=== PATIENT | male | born 1955 | race Caucasian/White ===

== ENCOUNTER 2018-09-26 16:15 | Inpatient (IN) ==
[2018-09-26] MEDS ORDERED: Naloxone 0.4 MG/ML INJ IVP PRN (18:26)
[2018-09-26 18:54] LABS: Basophils % 0.2 %; Eosinophils % 0.2 %; Hematocrit 17.4 % (37.5-50.1); Lymphocytes # 0.7 K/mcL (0.6-4.6); Lymphocytes % 10.9 %; Mean Corpuscular HGB Conc 32.2 g/dL (31.6-35.5); Mean Corpuscular Hemoglobin 25.2 pg (28.0-33.3); Mean Corpuscular Volume 78.4 fL (83.0-100.0); Mean Platelet Volume 9.9 fL (9.4-12.4); Monocytes # 0.5 K/mcL (0.0-1.3); Monocytes % 8.3 %; Nucleated Red Blood Cells 0.5 /100 WBC (0); Platelet Count 247 K/mcL (140-400); Red Blood Count 2.22 M/mcL (4.19-5.50); Red Cell Distribution Width 15.5 % (11.5-14.5); Segmented Neutrophils % 79.4 %
[2018-09-26 18:56] LABS: Hemoglobin 5.6 g/dL (12.9-16.9); Neutrophils # 4.8 K/mcL (1.6-8.9)
[2018-09-26 19:23] LABS: Platelet Estimate Normal (Normal)
[2018-09-26] MEDS: Pantoprazole 40 MG in 0.9 % Sodium Chloride Mini Bag 100 ML IVC SCH (19:54)
[2018-09-26] MEDS ORDERED: 0.9 % Sodium Chloride 250 ML ONE (21:41)
[2018-09-26] MEDS ORDERED: D5% in Water 1,000 ML IVC PRN (22:29)
[2018-09-26] MEDS ORDERED: *HR* Dextrose 50 % in Water (Syg) 50 ML SYRINGE IVP PRN (22:29)
[2018-09-26] MEDS ORDERED: Dextrose Gel 15 GM/37.5 ML TUBE PO PRN ×2 (22:29)
--- NOTE | 2018-09-26 23:28 | Internal Med History&Physical ---
Date of Encounter: 09/26/18 Time of Encounter: 20:50 Internal Medicine - H&P: HPI Chief complaint: Acute blood loss anemia Admitted From: Hospital to Hospital Transfer Plans for Post Hospital Care: Home History of present illness: Mr. Carlton is a 63 year old male Patient presented to the emergency room at [facility] with a 1 week history of weakness and shortness of breath. The shortness of breath worsened within the last 2 days. He has noticed dark red blood in his stool for the last week as well. He has had similar symptoms in the past and was treated at [facility] about 3 years ago. He received an upper and lower scope but did not find a source of bleeding. He was started on iron tablets at that time because he was found to be iron deficient. He is never required a blood transfusion in the past. The emergency room at [facility] patient's hemoglobin was 7.2. BMP showed a sodium of 128 but an elevated glucose of 417 demonstrates a corrected sodium of 133. Patient's lactic acid level was also elevated at 2.9. Occult blood test was also positive. Chest x-ray showed no acute abnormalities but a CT abdomen and pelvis revealed a right lower lobe pneumonia, but no acute findings in the abdomen or pelvis. He was started on IV Protonix given 2 L of IV fluids blood cultures were drawn and he was started on Levaquin. Because [facility] has no GI coverage and their blood bank could not match his blood type patient was transferred to [place] for further management. Upon my assessment patient appears comfortable in no acute distress. He denies chest pain, nausea, vomiting, abdominal pain, diarrhea and constipation. His indicates that he did also have a fever 4 days ago of 102.5. He took Tylenol but with his history this causes GI bleeding. He tries to limit taking Tylenol because of this. Repeat labs upon arrival showed a hemoglobin of 5.6. Patient was again typed and screened and 5 units of PRBCs were ordered as well as 2 units of plasma and 1 unit of platelets. Past Med Surg Social Fam HX - Past Medical History Medical history: diabetes Additional medical history: anemia, vertigo - Social History Smoking Status: Never smoker Smokeless Tobacco Status: No Alcohol use: rarely Drug use: none Internal Medicine - H&P: Meds Allergy/AdvReac Type Severity Reaction Status Date / Time No Known Allergies Allergy Verified 09/26/18 18:36 All Systems PM: A 10-system review of systems was performed and is negative for pertinent findings except as documented above in the HPI. - Constitutional Vitals: Temp Pulse Resp BP Pulse Ox 99.7 F H 94 16 154/81 97 09/26/18 21:46 09/26/18 21:46 09/26/18 21:43 09/26/18 21:46 09/26/18 21:46 General appearance: Present: A&O X 3, pleasant, no acute distress, answers q uestions appropriately Exam: Patient stable - Head Head exam: Present: normal inspection - Eye Eye exam: Present: EOMI, normal appearance. Absent: conjuntiva pink Additional comments: Pale conjunctiva - Neck Neck exam general surgery: Absent: tenderness - Respiratory Respiratory exam: Present: CTAB. Absent: rales, respiratory distress, rhonchi, wheezes - Cardiovascular Cardiovascular exam: Present: RRR. Absent: diastolic murmur, systolic murmur - GI/Abdominal GI/Abdominal exam: Present: normal bowel sounds, soft. Absent: tenderness - Extremities Exam Extremities exam: Present: warm, radial pulses palpable and symmetrical. Absent: calf tenderness, pedal edema, tenderness - Neurological Exam Neurological exam: Present: no focal deficits, strengths equal and symetr throughout. Absent: motor sensory deficit, facial droop, speech deficit - Skin Skin exam: Present: dry, normal color, warm Internal Med - H&P Results - Labs CBC & Chem 7: 09/26/18 18:39 Labs: Short CBC 09/26/18 Range/Units 18:39 WBC 6.1 (4.3-11.1) K/mcL Hgb 5.6 L* (12.9-16.9) g/dL Hct 17.4 L (37.5-50.1) % Plt Count 247 (140-400) K/mcL Neutrophils # 4.8 (1.6-8.9) K/mcL - Assessment and plan (1) Acute blood loss anemia Current Visit: Yes Status: Acute Assessment and plan: Hemoglobin of 7.2 at [facility], now 5.6. Delay getting blood due to antibody screening, but now blood transfusion initiated, giving 5 units pRBCs as well as 1 unit of platelets, and 2 units of plasma. GI consulted, will see patient in the morning. Continue blood, plasma and platelet transfusion Recheck cbc after 2-3 units transfused Monitor for signs of bleeding GI consult in AM, likely scope in near future. (2) GI bleed Current Visit: Yes Status: Acute Assessment and plan: Positive stool occult blood, history of GI bleed. No sources found in the past however. Treatment as above. Qualifiers: Qualified Code(s): K92.2 - Gastrointestinal hemorrhage, unspecified (3) Right lower lobe pneumonia Current Visit: Yes Status: Acute Assessment and plan: As evidenced by patient's CT abdomen. Levaquin started in ER at [facility], blood cultures drawn. Continue antibiotics follow up blood cultures Repeat lactic acid level. Qualifiers: Pneumonia type: due to unspecified organism Qualified Code(s): J18.1 - Lobar pneumonia, unspecified organism (4) Shortness of breath Current Visit: Yes Status: Acute Assessment and plan: Likely secondary to anemia as well as pneumonia. Treatment as above Osygen as needed (5) Diabetes Current Visit: Yes Status: Acute Assessment and plan: Blood sugar elevated at 417. Not on insulin at home Hold home meds Low dose sliding scale insulin as needed Monitor sugars Q6H Diabetic diet when no longer NPO Qualifiers: Diabetes mellitus type: type 2 Diabetes mellitus long distance operator insulin use: without long distance operator use Diabetes mellitus complication status: with hyperglycemia Qualified Code(s): E11.65 - Type 2 diabetes mellitus with hyperglycemia (6) History of iron deficiency anemia Current Visit: Yes Status: Acute Assessment and plan: Patient on iron at home. MCV low at 78.4. Treatment as above Continue iron at discharge (7) DVT prophylaxis Current Visit: Yes Status: Acute Assessment and plan: SCDs - Time Spent With Patient Total time spent is greater than 50% in coordination of care (as documented) at patient's floor/unit and/or counseling patient: Greater than 35 minutes
[2018-09-27] MEDS: Pantoprazole 40 MG in 0.9 % Sodium Chloride Mini Bag 100 ML IVC SCH ×3 (00:23→10:15)
[2018-09-27] MEDS: Insulin LISPRO 300 UNITS/3 ML VIAL SQ SCH ×4 (00:24→18:03)
[2018-09-27 00:41] LABS: Basophils % 0.3 %; Eosinophils % 0.3 %; Hematocrit 20.6 % (37.5-50.1); Hemoglobin 6.5 g/dL (12.9-16.9); Lymphocytes # 0.8 K/mcL (0.6-4.6); Lymphocytes % 11.3 %; Mean Corpuscular HGB Conc 31.6 g/dL (31.6-35.5); Mean Corpuscular Volume 82.4 fL (83.0-100.0); Mean Platelet Volume 10.5 fL (9.4-12.4); Monocytes # 0.6 K/mcL (0.0-1.3); Monocytes % 9.1 %; Neutrophils # 5.4 K/mcL (1.6-8.9); Nucleated Red Blood Cells 0.9 /100 WBC (0); Platelet Count 264 K/mcL (140-400); Red Cell Distribution Width 16.4 % (11.5-14.5)
[2018-09-27 00:58] LABS: BUN/Creatinine Ratio 14 (6-26); Blood Urea Nitrogen 11 mg/dL (8-23); Calcium 8.3 mg/dL (8.6-10.3); Carbon Dioxide 22 mEq/L (23-29); Chloride 100 mEq/L (98-107); Glucose 253 mg/dL (70-105); Osmolality,Calculated 282 (280-300); Potassium 3.5 mEq/L (3.5-5.1); Sodium 132 mEq/L (136-145); eGFR For Non-African Americans > 60 (> 60)
[2018-09-27] MEDS ORDERED: 0.9 % Sodium Chloride 250 ML ONE ×2 (02:04→06:50)
[2018-09-27] MEDS: Levofloxacin 750 MG/150 ML 750 MG/150 ML BAG IVPB SCH (07:49)
--- NOTE | 2018-09-27 09:31 | Internal Med Progress Note ---
Hospitalist Progress Note - Encounter Date of Encounter: 09/27/18 Time of Encounter: 09:28 - Subjective Interval History: Seen and examined at the bedside with family Denies CP/SOB/N/V/D Receiving RBCs Awaiting EGD by GI-Dr. Quiñones informed Hemodynamically stable - Exam Vitals: Temp Pulse Resp BP Pulse Ox 98.7 F 85 16 161/90 96 09/27/18 08:25 09/27/18 08:25 09/27/18 08:25 09/27/18 08:25 09/27/18 08:25 Exam: VSS Gen: NAD HEENT: Moist oral mucosa, no oral lesions, not pale, anicteric, acyanotic, normal neck inspection Chest: Equal chest movt bilaterally resp: CTAB Heart: S1, S2 only, no m/g/r Abdomen: Soft, not tender, no palapably enlarged organs Extremities: No edema Neuro: No gross deficits, normal speech and gait Psych: Appropriate affect - Assessment and Plan (1) Acute blood loss anemia Current Visit: Yes Status: Acute Assessment and Plan: likely due to GIB s/p 5 RBCs, 2 FFPs, 1 PLT Patient reports prior hx of GIB, likely due to duodenal ulcers, denied recent use of NSAIDS Reports recent colonoscopy said to be negative for bleeding and hx of polyps Hb at presentation 5, improved to 6 at [facility] Rpt CBC now GI called-Dr. Nguyen /Ishmael to see, for EGD today Keep NPO till GI eval Continue to monitor He is hemodynamically stable (2) DVT prophylaxis Current Visit: Yes Status: Acute Assessment and Plan: SCDs, due to GIB (3) Diabetes Current Visit: Yes Status: Chronic Assessment and Plan: Continue SSI FS q6h for now Check A1C a.m (4) GI bleed Current Visit: Yes Status: Acute Assessment and Plan: Positive stool occult blood, history of GI bleed. No sources found in the past however. Treatment as in anemia (5) History of iron deficiency anemia Current Visit: Yes Status: Acute Assessment and Plan: consider resuming iron prior to discharge Microcytic anemia on presentation (6) Right lower lobe pneumonia Current Visit: Yes Status: Acute Assessment and Plan: continue levaquin DVT Prophylaxis: SCDs - Time Spent with Patient Total time spent is greater than 50% in coordination of care (as documented) at patient's floor/unit and/or counseling patient: Plan of Care Discussed with: patient Internal Medicine: Result - Labs CBC & Chem 7: 09/27/18 00:09 09/27/18 00:09 Labs: Short CBC 09/26/18 09/27/18 Range/Units 18:39 00:09 WBC 6.1 6.9 (4.3-11.1) K/mcL Hgb 5.6 L* 6.5 L (12.9-16.9) g/dL Hct 17.4 L 20.6 L (37.5-50.1) % Plt Count 247 264 (140-400) K/mcL Neutrophils # 4.8 5.4 (1.6-8.9) K/mcL BMP 09/27/18 00:09 Sodium 132 L Potassium 3.5 Chloride 100 Carbon Dioxide 22 L BUN 11 Creatinine 0.76 Glucose 253 H Calcium 8.3 L Consult Discharge Plan - Plan Referrals: David Vasquez DO [Primary Care Provider] - 10/07/18 11:00 am (3) Diabetes Qualifiers: Diabetes mellitus type: type 2 Diabetes mellitus radio script writer insulin use: without radio script writer use Diabetes mellitus complication status: with hyperglycemia Qualified Code(s): E11.65 - Type 2 diabetes mellitus with hyperglycemia (4) GI bleed Qualifiers: Qualified Code(s): K92.2 - Gastrointestinal hemorrhage, unspecified (6) Right lower lobe pneumonia Qualifiers: Pneumonia type: due to unspecified organism Qualified Code(s): J18.1 - Lobar pneumonia, unspecified organism
--- NOTE | 2018-09-27 11:50 | Anesthesia Evaluation PreOp ---
Date of Encounter: 09/27/18 Time of Encounter: 13:22 - Past History Planned Operation: EGD Cardiac History: Hyperlipidemia Pulmonary History: Other (right lower lobe pneumonia) FIBER TECHNICIAN History: Denies Any Significant HX Other Medical History: Diabetes Type II, GERD, Other (GI bleed) Anesthesia History: Past Anesthesia (no prior GA) Alcohol Use: rarely Drug use: none Medications and Allergies Allergy/AdvReac Type Severity Reaction Status Date / Time No Known Allergies Allergy Verified 09/26/18 18:36 - Meds/Allergy Pre-op Review Medications Reviewed: Yes Allergies Reviewed: Yes Beta Blockers on Current Med List: No Anesthesia Results - Labs 09/27/18 12:57 09/27/18 00:09 Anesthesia Exam Vital Signs/O2 Sat/Glucose, Most Recent Temp Pulse Resp BP Pulse Ox 99.2 F 81 18 158/90 98 09/27/18 11:32 09/27/18 11:32 09/27/18 11:32 09/27/18 11:32 09/27/18 11:32 Blood Glucose* 225 Height: 6'1''/1.85m Weight: 197 lbs/89.5 kg NPO (# of Hours): 8 Pain Scale: 0 Pain Scale Used: Numeric (1 - 10) - HEENT Pupil (Motor): EOMI Mallampati: II Teeth: Normal Oral Opening: Greater than 3 - FIBER TECHNICIAN LOC: Oriented FIBER TECHNICIAN Motor: Normal RUE, Normal LUE, Normal RLE, Normal LLE, Normal Face FIBER TECHNICIAN Sensory: Normal: RUE, LUE, RLE, LLE, Face - Cardiac Rhythm: Regular Murmur: None - Pulmonary Breath Sounds: bilateral Clear Respiratory Effort: Symmetrical Anesthesia Assess/Plan ASA Score: 3 Level of consciousness: Cooperative, Oriented, Tranquil Anesthetic Plan: MAC Monitoring Plan: Standard Monitors
--- NOTE | 2018-09-27 12:39 | Gastroenterology Consult Note ---
Date of Encounter: 09/27/18 Time of Encounter: 02:45 - Assessment and plan (1) Melena Current Visit: Yes Status: Acute Assessment and plan: History of melena for 1 week without known risk factors Patient presents with hemoglobin 5.6, symptomatic He did undergo EGD today without evidence of source for bleed Plan Transitioned to Protonix once a day IV push We will give clear diet today GoLYTELY plus Dulcolax GI prep Plan for push enteroscopy tomorrow plus colonoscopy Repeat H&H at 6 PM (2) Acute blood loss anemia Current Visit: Yes Status: Acute Assessment and plan: EGD does not show evidence of acute bleed Plan as above (3) History of iron deficiency anemia Current Visit: Yes Status: Acute - Time Spent With Patient Total time spent is greater than 50% in coordination of care (as documented) at patient's floor/unit and/or counseling patient: GI History of Present Illness - Data of Consult Patient: new to practice Consult date: 09/27/18 Requesting Physician: Janak Brown MD - Consult Narrative Reason for consult: GI bleed History of present illness: Mr. Carlton is a 63 year old male with history of diabetes mellitus who presented to the ED with 1 week history of melena and some shortness of breath and weakness. The patient says that he has had a history of melana in the past approximately 4 years ago at either [facility] or [facility] at which time he had an EGD and colonoscopy which were essentially normal. At that time he was apparently taking large amounts of NSAIDs, however he is not during this occasion. He says that this started about one week ago and he cannot think of anything that brought it on. Initially he was not concerned about it, however he started to develop significant shortness of breath and so he felt that maybe he should be checked out. Upon arrival to the ED it was noted that his hemoglobin was 5.6. The patient did receive 5 u packed red blood cells, 2 units plasma, one unit platelets. The patient was started on IV Protonix and scheduled for EGD today. Past Med Surg Social Fam HX - Past Medical History Medical history: diabetes Additional medical history: anemia, vertigo - Social History Smoking Status: Never smoker Smokeless Tobacco Status: No Alcohol use: rarely Drug use: none Review of Systems: Constitutional: Denies fevers, chills, weight loss. Admits to generalized fatigue Head/Neck: Denies HARTMANN, neck stiffness EENT: Denies vision changes/blurriness, rhinorrhea, congestion, sore throat CVS: Denies chest pain, palpitations, ALVA, orthopnea, edema, PND Pulm: Denies SOB, cough, sputum, hemoptysis, wheezing GI: Denies abdominal pain, nausea, vomiting, diarrhea, constipation, hematemasis. Admits to melena : Denies dysuria, increased frequency, urgency, hematuria Heme: Denies ease of bleeding or bruising MSK: Denies joint pain, limited ROM Skin: Denies rashes, ulcers, color changes Neuro: Denies HARTMANN, paresthesias, focal deficits, ataxia - Constitutional Vitals: Temp Pulse Resp BP Pulse Ox 99.2 F 81 18 158/90 98 09/27/18 11:32 09/27/18 11:32 09/27/18 11:32 09/27/18 11:32 09/27/18 11:32 Exam: Gen: Vitals noted. No acute distress. Eyes: anicteric sclerae, moist conjunctivae; no lid-lag; Pupils equal and reactive to light HENT: Atraumatic; oropharynx clear with moist mucous membranes and no mucosal ulcerations; normal hard and soft palate Neck: Trachea midline; supple, no thyromegaly or lymphadenopathy Cardiac: RRR, no murmur, +S1/S2 Pulmonary: CTA bilaterally, no wheezes, rales or rhonchi, equal chest expansion Abdomen: soft, nontender, no guarding. No masses or hepatosplenomegaly MSK: ROM intact, no joint swelling noted Extremities: no BLE edema, nontender calf, no cyanosis or clubbing Skin: Normal temperature, turgor and texture; no rash, ulcers or subcutaneous nodules Neuro: moves all extremities, no focal deficits. Psych: Appropriate mood and behavior. A&Ox3 Results - Labs CBC & Chem 7: 09/27/18 12:57 09/27/18 00:09 Labs: Last Result Calcium 8.3 mg/dL (8.6-10.3) L 09/27/18 00:09 Entire Visit Hgb 6.5 g/dL (12.9-16.9) L 09/27/18 00:09 Hct 20.6 % (37.5-50.1) L 09/27/18 00:09 Consult Discharge Plan - Plan Referrals: David Vasquez DO [Primary Care Provider] - 10/07/18 11:00 am
[2018-09-27 13:14] LABS: Basophils % 0.3 %; Eosinophils % 0.4 %; Hematocrit 31.8 % (37.5-50.1); Hemoglobin 10.4 g/dL (12.9-16.9); Immature Granulocytes % 1.5 % (0-4); Lymphocytes # 0.8 K/mcL (0.6-4.6); Lymphocytes % 10.1 %; Mean Corpuscular HGB Conc 32.7 g/dL (31.6-35.5); Mean Corpuscular Hemoglobin 27.3 pg (28.0-33.3); Mean Corpuscular Volume 83.5 fL (83.0-100.0); Mean Platelet Volume 9.9 fL (9.4-12.4); Monocytes # 0.7 K/mcL (0.0-1.3); Monocytes % 9.9 %; Neutrophils # 5.8 K/mcL (1.6-8.9); Nucleated Red Blood Cells 0.9 /100 WBC (0); Platelet Count 251 K/mcL (140-400); Red Blood Count 3.81 M/mcL (4.19-5.50); Red Cell Distribution Width 15.6 % (11.5-14.5); Segmented Neutrophils % 77.8 %
[2018-09-27] MEDS ORDERED: *HR* Propofol 200 MG/20 ML VIAL IVP ONE (13:36)
[2018-09-27] MEDS ORDERED: Lidocaine -MPF 2% 2 ML VIAL ONE (13:36)
[2018-09-27] MEDS ORDERED: SODIUM CHLORIDE/NAHCO3/KCL/PEG 4,000 ML SOLN.RECON PO ONE ×2 (15:41→17:00)
[2018-09-27 22:17] LABS: Basophils % 0.4 %; Eosinophils % 0.3 %; Hematocrit 30.2 % (37.5-50.1); Hemoglobin 10.2 g/dL (12.9-16.9); Immature Granulocytes % 1.9 % (0-4); Lymphocytes # 0.7 K/mcL (0.6-4.6); Lymphocytes % 9.6 %; Mean Corpuscular HGB Conc 33.8 g/dL (31.6-35.5); Mean Corpuscular Hemoglobin 27.6 pg (28.0-33.3); Mean Corpuscular Volume 81.6 fL (83.0-100.0); Mean Platelet Volume 10.2 fL (9.4-12.4); Monocytes # 0.5 K/mcL (0.0-1.3); Monocytes % 6.9 %; Neutrophils # 6.3 K/mcL (1.6-8.9); Nucleated Red Blood Cells 0.6 /100 WBC (0); Platelet Count 283 K/mcL (140-400); Red Cell Distribution Width 15.9 % (11.5-14.5); Segmented Neutrophils % 80.9 %
[2018-09-28] MEDS: Insulin LISPRO 300 UNITS/3 ML VIAL SQ SCH ×3 (00:13→17:09)
[2018-09-28 04:54] LABS: Basophils % 0.3 %; Eosinophils % 0.6 %; Immature Granulocytes % 2.2 % (0-4); Lymphocytes # 0.7 K/mcL (0.6-4.6); Lymphocytes % 11.3 %; Mean Corpuscular HGB Conc 33.3 g/dL (31.6-35.5); Mean Corpuscular Hemoglobin 27.4 pg (28.0-33.3); Mean Corpuscular Volume 82.2 fL (83.0-100.0); Mean Platelet Volume 10.2 fL (9.4-12.4); Monocytes # 0.5 K/mcL (0.0-1.3); Monocytes % 8.5 %; Neutrophils # 4.9 K/mcL (1.6-8.9); Nucleated Red Blood Cells 0.6 /100 WBC (0); Platelet Count 272 K/mcL (140-400); Red Blood Count 3.65 M/mcL (4.19-5.50); Red Cell Distribution Width 15.7 % (11.5-14.5); Segmented Neutrophils % 77.1 %
[2018-09-28 05:01] LABS: BUN/Creatinine Ratio 9 (6-26); Blood Urea Nitrogen 7 mg/dL (8-23); Calcium 8.5 mg/dL (8.6-10.3); Carbon Dioxide 20 mEq/L (23-29); Chloride 102 mEq/L (98-107); Glucose 216 mg/dL (70-105); Osmolality,Calculated 281 (280-300); Potassium 3.1 mEq/L (3.5-5.1); Sodium 133 mEq/L (136-145); eGFR For Non-African Americans > 60 (> 60)
[2018-09-28] MEDS ORDERED: Potassium Chloride 40 MEQ, Lidocaine 1% 2 ML in D5% in Water 500 ML IVPB ONE (07:27)
[2018-09-28] MEDS: Levofloxacin 750 MG/150 ML 750 MG/150 ML BAG IVPB SCH (07:52)
[2018-09-28] MEDS: Pantoprazole 40 MG VIAL IVP SCH (07:53)
[2018-09-28 07:55] LABS: Estimated Average Glucose 151 mg/dl; Hemoglobin A1C 6.9 %
[2018-09-28] MEDS ORDERED: Insulin LISPRO 300 UNITS/3 ML VIAL SQ SCH ×2 (12:00→21:00)
--- NOTE | 2018-09-28 12:56 | Anesthesia Evaluation PreOp ---
Date of Encounter: 09/28/18 Time of Encounter: 12:54 - Past History Planned Operation: push enteroscopy, colonoscopy (GI bleed) Cardiac History: Hyperlipidemia Pulmonary History: Denies Any Significant HX SECURITIES BROKER History: Denies Any Significant HX Other Medical History: Bleeding (GI bleed - s/p 5U PRBC's & 2 plasma & 1 platelets), Diabetes Type II (oral medications only), GERD (well controlled with prilosec) Anesthesia History: No Prior Anesthetic Complications Alcohol Use: rarely Drug use: none Medications and Allergies Atorvastatin [Lipitor] 40 mg PO HS 09/27/18 [History] Ferrous Sulfate 325 mg PO TID 09/27/18 [History] Gemfibrozil [Lopid] 600 mg PO BIDWM 09/27/18 [History] Glimepiride [Amaryl] 4 mg PO DAILY 09/27/18 [History] Metformin HCl 1,000 mg PO BID 09/27/18 [History] Omeprazole [PriLOSEC] 40 mg PO DAILY 09/27/18 [History] Pioglitazone HCl [Actos] 45 mg PO DAILY 09/27/18 [History] Allergy/AdvReac Type Severity Reaction Status Date / Time No Known Allergies Allergy Verified 09/26/18 18:36 - Meds/Allergy Pre-op Review Medications Reviewed: Yes Allergies Reviewed: Yes Beta Blockers on Current Med List: No Anesthesia Results - Labs 09/28/18 04:07 09/28/18 04:07 Anesthesia Exam Last Vital Signs Temp 98.4 F 09/28/18 11:12 Pulse 75 09/28/18 12:54 Resp 18 09/28/18 12:54 BP 141/78 09/28/18 12:54 Pulse Ox 98 09/28/18 12:54 Weight: 89 kg NPO (# of Hours): > 8 hrs - HEENT Pupil (Motor): Pupils equal, EOMI Mallampati: II Teeth: Normal Oral Opening: Greater than 3 - SECURITIES BROKER LOC: Oriented - Cardiac Rhythm: Regular Murmur: None - Pulmonary Breath Sounds: bilateral Clear Respiratory Effort: Symmetrical Anesthesia Assess/Plan ASA Score: 2 Level of consciousness: Cooperative Anesthetic Plan: MAC Monitoring Plan: Standard Monitors Recovery Plan: PACU
[2018-09-28] MEDS ORDERED: Propofol 500 MG/50 ML INFUS..BTL ONE (12:58)
--- NOTE | 2018-09-28 14:15 | Internal Med Progress Note ---
Hospitalist Progress Note - Encounter Date of Encounter: 09/28/18 Time of Encounter: 12:00 - Subjective Interval History: Hospital course reviewed. Patient was admitted for GI bleed with hemoglobin of 5.6, requiring 5 units of PRBC transfusion as well as FFP and Plt. Denies any further episode of melena, hematochezia, or bright red blood per rectum. Noted EGD finding yesterday which was unremarkable except for gastritis. - Exam Vitals: Temp Pulse Resp BP Pulse Ox 98.4 F 75 18 141/78 98 09/28/18 11:12 09/28/18 12:54 09/28/18 12:54 09/28/18 12:54 09/28/18 12:54 Exam: VS reviewed Gen: NAD resp: CTAB Heart: S1, S2 only, no m/g/r Abdomen: Soft, not tender Extremities: No edema - Assessment and Plan (1) Acute blood loss anemia Current Visit: Yes Status: Acute Assessment and Plan: likely due to GIB s/p 5 RBCs, 2 FFPs, 1 PLT. Hb stable around 10. Last pRBC transfusion yesterday morning EGD 09/27: gastritis plan for colonoscopy and small bowel enteroscopy today (2) GI bleed Current Visit: Yes Status: Acute Assessment and Plan: as above (3) Diabetes Current Visit: Yes Status: Chronic Assessment and Plan: A1c 6.9 Hold off on oral hypoglycemic agents increase to moderate dose sliding scale ADA diet postprocedure (4) Right lower lobe pneumonia Current Visit: Yes Status: Acute Assessment and Plan: continue levaquin D3, aim for 7 day course (5) Hypokalemia Current Visit: Yes Status: Acute Assessment and Plan: Replete intravenously due to patient's nothing by mouth status (6) DVT prophylaxis Current Visit: Yes Status: Acute Assessment and Plan: SCDs, due to GIB - Time Spent with Patient Total time spent is greater than 50% in coordination of care (as documented) at patient's floor/unit and/or counseling patient: Plan of Care Discussed with: patient (also discussed with family members) Internal Medicine: Result - Labs CBC & Chem 7: 09/28/18 04:07 09/28/18 04:07 Labs: Short CBC 09/27/18 09/28/18 Range/Units 21:42 04:07 WBC 7.7 6.4 (4.3-11.1) K/mcL Hgb 10.2 L 10.0 L (12.9-16.9) g/dL Hct 30.2 L 30.0 L (37.5-50.1) % Plt Count 283 272 (140-400) K/mcL Neutrophils # 6.3 4.9 (1.6-8.9) K/mcL BMP 09/28/18 04:07 Sodium 133 L Potassium 3.1 L Chloride 102 Carbon Dioxide 20 L BUN 7 L Creatinine 0.78 Glucose 216 H Calcium 8.5 L Consult Discharge Plan - Plan Referrals: David Vasquez DO [Primary Care Provider] - 10/07/18 11:00 am (2) GI bleed Qualifiers: Qualified Code(s): K92.2 - Gastrointestinal hemorrhage, unspecified (3) Diabetes Qualifiers: Diabetes mellitus type: type 2 Diabetes mellitus intermediate insulin use: without regional intermodal truck driver use Diabetes mellitus complication status: with hyperglycemia Qualified Code(s): E11.65 - Type 2 diabetes mellitus with hyperglycemia (4) Right lower lobe pneumonia Qualifiers: Pneumonia type: due to unspecified organism Qualified Code(s): J18.1 - Lobar pneumonia, unspecified organism
--- NOTE | 2018-09-28 15:11 | Anesthesia Evaluation Post Op ---
Date of Encounter: 09/28/18 Time of Encounter: 13:45 - Vital Signs Vital Signs: Vital Signs Time 1345 BP 111/60 Pulse 68 Resp 20 O2 Sat 98 - Lungs Lungs: Clear Ascult./Percussion - Airway Airway: Non-obstructed - Cardiovascular Regular Rate - Mental Status Mental Status: Alert & Oriented, Answers Appropriately - Nausea Vomiting Nausea Vomiting: Not Present - Hydration Hydration: NPO, Has not voided - Discharge PostOp Status: Transfer Patient to floor
[2018-09-29 07:05] VITALS: BP 143/80
[2018-09-29 07:14] LABS: Hematocrit 33.4 % (37.5-50.1); Hemoglobin 10.9 g/dL (12.9-16.9); Mean Corpuscular HGB Conc 32.6 g/dL (31.6-35.5); Mean Corpuscular Volume 82.7 fL (83.0-100.0); Mean Platelet Volume 9.9 fL (9.4-12.4); Platelet Count 344 K/mcL (140-400); Red Blood Count 4.04 M/mcL (4.19-5.50); Red Cell Distribution Width 15.6 % (11.5-14.5)
[2018-09-29 07:18] LABS: BUN/Creatinine Ratio 8 (6-26); Blood Urea Nitrogen 6 mg/dL (8-23); Calcium 8.6 mg/dL (8.6-10.3); Carbon Dioxide 24 mEq/L (23-29); Chloride 103 mEq/L (98-107); Glucose 257 mg/dL (70-105); Osmolality,Calculated 286 (280-300); Potassium 3.7 mEq/L (3.5-5.1); Sodium 135 mEq/L (136-145); eGFR For Non-African Americans > 60 (> 60)
[2018-09-29] MEDS: Levofloxacin 750 MG/150 ML 750 MG/150 ML BAG IVPB SCH (07:52)
[2018-09-29] MEDS: Pantoprazole 40 MG VIAL IVP SCH (07:52)
[2018-09-29] MEDS: Insulin LISPRO 300 UNITS/3 ML VIAL SQ SCH (07:53)
--- NOTE | 2018-09-29 10:20 | Discharge Summary ---
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 Required 5 units of PRBC transfusion and hemostasis with clips. He remained hemodynamically stable with steady Hb count and will be discharged home with GI follow up in 2 weeks. Date of Encounter: 09/29/18 Time of Encounter: 07:30 - Discharge Diagnosis (1) Acute blood loss anemia Priority: Primary Status: Acute (2) GI bleed Priority: Secondary Status: Acute Qualifiers: Qualified Code(s): K92.2 - Gastrointestinal hemorrhage, unspecified (3) Diabetes Priority: Secondary Status: Chronic Qualifiers: Diabetes mellitus type: type 2 Diabetes mellitus moth exterminator insulin use: without moth exterminator use Diabetes mellitus complication status: with hyperglycemia Qualified Code(s): E11.65 - Type 2 diabetes mellitus with hyperglycemia (4) Right lower lobe pneumonia Priority: Secondary Status: Acute Qualifiers: Pneumonia type: due to unspecified organism Qualified Code(s): J18.1 - Lobar pneumonia, unspecified organism (5) Hypokalemia Priority: Secondary Status: Acute (6) DVT prophylaxis Priority: Secondary Status: Acute Hospital course: Mr. 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 Required 5 units of PRBC transfusion and hemostasis with clips. He remained hemodynamically stable with steady Hb count and will be discharged home with GI follow up in [address] scan showed findings compatible with lower lobe pneumonia and will be completing a total of 7 day course of abx. Discharge discussed with: patient, nurse, case management, computer systems consultant - Time Spent with Patient Total time spent providing and/or coordinating discharge services: 31 mins - Discharge Medications Home Medications: Atorvastatin [Lipitor] 40 mg PO HS 09/27/18 [History] Ferrous Sulfate 325 mg PO TID 09/27/18 [History] Gemfibrozil [Lopid] 600 mg PO BIDWM 09/27/18 [History] Glimepiride [Amaryl] 4 mg PO DAILY 09/27/18 [History] Metformin HCl 1,000 mg PO BID 09/27/18 [History] Omeprazole [PriLOSEC] 40 mg PO DAILY 09/27/18 [History] Pioglitazone HCl [Actos] 45 mg PO DAILY 09/27/18 [History] Allergies/Adverse Reactions: Allergy/AdvReac Type Severity Reaction Status Date / Time No Known Allergies Allergy Verified 09/26/18 18:36 Date of admission: 09/27/18 10:20 Primary care physician: David Vasquez DO Consults: 09/26/18 18:27 Consult to Physician [CONS] Routine Consulting Provider: Lencho De Souza Reason for Consult: GI bleed Time Notified: 18:27 Call Completed: Yes 09/27/18 09:44 Consult to Gastroenterology [CONS] Routine Consulting Provider: Gastroenterology Lillian Reason for Consult: GI bleed Call Completed: Yes - Constitutional Vitals: Temp Pulse Resp BP Pulse Ox 98.5 F 79 20 143/80 95 09/29/18 07:03 09/29/18 07:03 09/29/18 07:03 09/29/18 07:03 09/29/18 07:03 General appearance: Present: A&O X 3, pleasant, no acute distress, answers questions appropriately Exam: VS reviewed Gen: NAD resp: CTAB Heart: S1, S2 only, no m/g/r Abdomen: Soft, not tender Extremities: No edema - Patient Status Disposition: Home, Self-Care Condition: Fair Functional capacity at discharge: independent ambulation Overall status at discharge: patient is progressing back to baseline - Discharge Instructions Instructions: Anemia (GEN), Pneumonia (DC), Diabetes Mellitus Type 2 in Adults (DC) Follow Up With: David Vasquez DO [Primary Care Provider] - 10/07/18 11:00 am Hermelindo Quiñones MD [Partnered Physician] - Additional Instructions: Complete abx for pneumonia follow up with GI in 2 weeks. - Diet and Activity Activity: resume usual activities as tolerated Diet: diabetic diet
== END 2018-09-29 11:41 | disposition home or self-care (01) | DRG 377 ==
LOC: 2ANU → SUATTDRO 18:00 → 2NNU 19:43 → SUATTDRO 09-27 10:20
PROVIDERS: ADMIT Internal Medicine; ATTEND Internal Medicine

== ENCOUNTER 2019-10-06 12:02 | Observation (INO) ==
[2019-10-06] MEDS ORDERED: 0.9 % Sodium Chloride 500 ML IVC ONE ×2 (12:15→12:35)
[2019-10-06 12:53] LABS: Basophils % 0.5 %; Mean Platelet Volume 9.8 fL (9.4-12.4); Nucleated Red Blood Cells 0.5 /100 WBC (0)
[2019-10-06 12:54] LABS: Eosinophils % 0.6 %; Hematocrit 21.9 % (37.5-50.1); Immature Granulocytes % 1.5 % (0-4); Lymphocytes # 0.6 K/mcL (0.6-4.6); Lymphocytes % 9.8 %; Mean Corpuscular HGB Conc 26.5 g/dL (31.6-35.5); Mean Corpuscular Hemoglobin 17.8 pg (28.0-33.3); Mean Corpuscular Volume 67.4 fL (83.0-100.0); Monocytes # 0.6 K/mcL (0.0-1.3); Monocytes % 9.4 %; Neutrophils # 4.9 K/mcL (1.6-8.9); Platelet Count 305 K/mcL (140-400); Red Blood Count 3.25 M/mcL (4.19-5.50); Red Cell Distribution Width 16.8 % (11.5-14.5); Segmented Neutrophils % 78.2 %; White Blood Count 6.2 K/mcL (4.3-11.1)
[2019-10-06 13:08] LABS: Hemoglobin 5.8 g/dL (12.9-16.9)
[2019-10-06 13:17] LABS: BUN/Creatinine Ratio 20 (6-26); Blood Urea Nitrogen 18 mg/dL (8-23); Calcium 8.7 mg/dL (8.6-10.3); Carbon Dioxide 20 mEq/L (23-29); Chloride 96 mEq/L (98-107); Glucose 505 mg/dL (70-105); Iron < 10 mcg/dL (65-175); Osmolality,Calculated 288 (280-300); Potassium 3.9 mEq/L (3.5-5.1); Sodium 127 mEq/L (136-145); Transferrin 385 mg/dL (203-362); eGFR For African Americans > 60 (> 60); eGFR For Non-African Americans > 60 (> 60)
[2019-10-06 13:37] LABS: Prothrombin Time 10.8 Seconds (9.4-12.1)
[2019-10-06 13:40] LABS: Activated Partial Thrombo Time 37.9 Seconds (26.0-36.0)
[2019-10-06] MEDS ORDERED: Insulin Human Regular 10 UNIT in 0.9 % Sodium Chloride 10 ML IV STA (13:44)
[2019-10-06 13:52] LABS: Hypochromasia Present (Not Present)
[2019-10-06 13:53] LABS: Microcytosis Present (Not Present)
[2019-10-06 13:54] LABS: Ovalocytes 1+ (Not Present)
[2019-10-06 14:00] LABS: Platelet Estimate Normal (Normal)
[2019-10-06] MEDS ORDERED: Naloxone 0.4 MG/ML INJ IVP PRN (15:16)
[2019-10-06] MEDS ORDERED: Ondansetron 4 MG/2 ML VIAL IVP PRN (15:16)
[2019-10-06] MEDS ORDERED: Dextrose Gel 15 GM/37.5 ML TUBE PO PRN ×2 (15:22)
[2019-10-06] MEDS ORDERED: D5% in Water 1,000 ML IVC PRN (15:22)
[2019-10-06] MEDS ORDERED: *HR* Dextrose 50 % in Water (Syg) 50 ML SYRINGE IVP PRN (15:22)
[2019-10-06 17:24] LABS: BUN/Creatinine Ratio 21 (6-26); Blood Urea Nitrogen 16 mg/dL (8-23); Calcium 8.8 mg/dL (8.6-10.3); Carbon Dioxide 23 mEq/L (23-29); Chloride 99 mEq/L (98-107); Glucose 269 mg/dL (70-105); Osmolality,Calculated 287 (280-300); Potassium 3.6 mEq/L (3.5-5.1); Sodium 133 mEq/L (136-145); eGFR For African Americans > 60 (> 60); eGFR For Non-African Americans > 60 (> 60)
[2019-10-06] MEDS ORDERED: Insulin LISPRO 300 UNITS/3 ML VIAL SQ SCH ×2 (18:00→21:00)
[2019-10-06] MEDS: Pantoprazole 40 MG VIAL IVP SCH (18:04)
[2019-10-06] MEDS: 0.9 % Sodium Chloride 250 ML IVC SCH (19:57)
[2019-10-06] MEDS: Insulin DETEMIR 100 UNIT/ML X5UNITS SQ SCH (19:58)
[2019-10-06] MEDS: Insulin LISPRO 300 UNITS/3 ML VIAL SQ SCH (20:49)
[2019-10-06] MEDS ORDERED: 0.9 % Sodium Chloride 250 ML ONE (23:48)
[2019-10-07] MEDS: 0.9 % Sodium Chloride 250 ML IVC SCH (00:36)
[2019-10-07] MEDS: Pantoprazole 40 MG VIAL IVP SCH ×2 (05:18→18:15)
[2019-10-07 05:50] LABS: Alanine Aminotransferase 16 Units/L (7-52); Albumin 3.5 g/dL (3.5-5.7); Albumin/Globulin Ratio 1.7 (1.1-2.2); Alkaline Phosphatase 52 Units/L (34-104); Aspartate Amino Transferase 13 Units/L (13-39); BUN/Creatinine Ratio 15 (6-26); Basophils # 0.1 K/mcL (0.0-0.2); Basophils % 1.1 %; Bilirubin,Total 0.4 mg/dL (0.3-1.0); Blood Urea Nitrogen 12 mg/dL (8-23); Calcium 8.4 mg/dL (8.6-10.3); Carbon Dioxide 26 mEq/L (23-29); Chloride 101 mEq/L (98-107); Chol/HDL Ratio 4.8 (0-4.9); Cholesterol 95 mg/dL (< 200); Eosinophils # 0.2 K/mcL (0.0-0.6); Globulin 2.1 g/dL (2.4-3.5); Glucose 280 mg/dL (70-105); HDL Cholesterol 20 mg/dL (40-59); Hematocrit 24.7 % (37.5-50.1); Hemoglobin 7.2 g/dL (12.9-16.9); Immature Granulocytes % 1.6 % (0-4); LDL Cholesterol,Calculated 22 mg/dL (0-99); Lymphocytes # 1.1 K/mcL (0.6-4.6); Lymphocytes % 20.3 %; Mean Corpuscular HGB Conc 29.1 g/dL (31.6-35.5); Mean Corpuscular Volume 68.6 fL (83.0-100.0); Mean Platelet Volume 10.1 fL (9.4-12.4); Monocytes # 0.5 K/mcL (0.0-1.3); Monocytes % 9.1 %; Nucleated Red Blood Cells 0.5 /100 WBC (0); Osmolality,Calculated 290 (280-300); Phosphorous 2.9 mg/dL (2.7-4.5); Platelet Count 283 K/mcL (140-400); Potassium 3.7 mEq/L (3.5-5.1); Red Cell Distribution Width 20.2 % (11.5-14.5); Segmented Neutrophils % 64.9 %; Sodium 135 mEq/L (136-145); Total Protein 5.6 g/dL (6.4-8.9); Triglycerides 267 mg/dL (< 150); White Blood Count 5.6 K/mcL (4.3-11.1); eGFR For African Americans > 60 (> 60); eGFR For Non-African Americans > 60 (> 60)
[2019-10-07 05:52] LABS: Neutrophils # 3.6 K/mcL (1.6-8.9)
[2019-10-07 06:07] LABS: Anisocytosis 1+ (Not Present); Hypochromasia Present (Not Present); Ovalocytes 1+ (Not Present); Poikilocytosis 1+ (Not Present); Polychromasia 1+ (Not Present)
[2019-10-07 06:08] LABS: Microcytosis Present (Not Present); Platelet Estimate Normal (Normal)
[2019-10-07 06:16] LABS: Vitamin B12 687 pg/mL (250-1100)
[2019-10-07 06:20] LABS: Folate > 22.3 ng/mL (3.0-16.0)
[2019-10-07] MEDS ORDERED: Insulin LISPRO 300 UNITS/3 ML VIAL SQ SCH (08:00)
[2019-10-07] MEDS: Folic Acid 1 MG TABLET PO SCH (08:41)
[2019-10-07] MEDS: Insulin LISPRO 300 UNITS/3 ML VIAL SQ SCH ×7 (08:42→21:45)
[2019-10-07] MEDS: Insulin DETEMIR 100 UNIT/ML X5UNITS SQ SCH ×2 (08:49→21:45)
[2019-10-07] MEDS ORDERED: Insulin DETEMIR 100 UNIT/ML X5UNITS SQ SCH (09:00)
[2019-10-07] MEDS ORDERED: Iron Sucrose Complex 400 MG in 0.9 % Sodium Chloride 250 ML IVPB ONE (10:00)
[2019-10-07 10:14] LABS: Hematocrit 24.9 % (37.5-50.1); Hemoglobin 7.2 g/dL (12.9-16.9)
[2019-10-07 13:29] LABS: Hematocrit 26.3 % (37.5-50.1); Hemoglobin 7.3 g/dL (12.9-16.9)
[2019-10-07] MEDS ORDERED: Isovue-370 500 ML BOTTLE IVP ONE (16:07)
[2019-10-07 21:06] LABS: Hematocrit 28.7 % (37.5-50.1); Hemoglobin 8.5 g/dL (12.9-16.9)
[2019-10-08] MEDS: Pantoprazole 40 MG VIAL IVP SCH (06:18)
[2019-10-08] MEDS ORDERED: Iron Sucrose Complex 400 MG in 0.9 % Sodium Chloride 250 ML IVPB ONE (08:00)
[2019-10-08 08:30] LABS: Basophils # 0.1 K/mcL (0.0-0.2); Basophils % 1.1 %; Eosinophils # 0.2 K/mcL (0.0-0.6); Eosinophils % 2.5 %; Hematocrit 30.2 % (37.5-50.1); Immature Granulocytes % 4.1 % (0-4); Lymphocytes # 1.1 K/mcL (0.6-4.6); Lymphocytes % 13.8 %; Mean Corpuscular HGB Conc 29.8 g/dL (31.6-35.5); Mean Corpuscular Volume 70.6 fL (83.0-100.0); Monocytes # 0.7 K/mcL (0.0-1.3); Monocytes % 8.4 %; Neutrophils # 5.5 K/mcL (1.6-8.9); Nucleated Red Blood Cells 0.8 /100 WBC (0); Platelet Count 310 K/mcL (140-400); Red Blood Count 4.28 M/mcL (4.19-5.50); Red Cell Distribution Width 21.7 % (11.5-14.5); Segmented Neutrophils % 70.1 %; White Blood Count 7.9 K/mcL (4.3-11.1)
[2019-10-08 08:43] LABS: BUN/Creatinine Ratio 11 (6-26); Blood Urea Nitrogen 9 mg/dL (8-23); Calcium 8.7 mg/dL (8.6-10.3); Carbon Dioxide 26 mEq/L (23-29); Chloride 102 mEq/L (98-107); Glucose 273 mg/dL (70-105); Osmolality,Calculated 288 (280-300); Potassium 3.8 mEq/L (3.5-5.1); Sodium 135 mEq/L (136-145); eGFR For African Americans > 60 (> 60); eGFR For Non-African Americans > 60 (> 60)
[2019-10-08] MEDS: Insulin DETEMIR 100 UNIT/ML X5UNITS SQ SCH (10:14)
[2019-10-08] MEDS: Folic Acid 1 MG TABLET PO SCH (10:18)
[2019-10-08] MEDS: Insulin LISPRO 300 UNITS/3 ML VIAL SQ SCH ×4 (10:18→14:32)
[2019-10-08 11:40] VITALS: BP 143/91
== END 2019-10-08 14:53 | disposition home or self-care (01) ==
LOC: EMEROOARM 12:02 → 2NENU 12:02 → SUATTDRO 15:33 → 2NENU 16:49
PROVIDERS: ADMIT Internal Medicine; ATTEND Internal Medicine

== ENCOUNTER 2020-12-27 12:16 | Observation (INO) ==
[2020-12-27 13:08] LABS: Basophils % 0.6 %; Eosinophils % 1.4 %; Hematocrit 20.2 % (37.5-50.1)
[2020-12-27 13:10] LABS: Eosinophils # 0.1 K/mcL (0.0-0.6); Immature Granulocytes % 0.8 % (0-4); Lymphocytes # 0.8 K/mcL (0.6-4.6); Lymphocytes % 12.4 %; Mean Corpuscular HGB Conc 28.2 g/dL (31.6-35.5); Mean Corpuscular Hemoglobin 19.9 pg (28.0-33.3); Mean Corpuscular Volume 70.6 fL (83.0-100.0); Mean Platelet Volume 10.9 fL (9.4-12.4); Monocytes # 0.4 K/mcL (0.0-1.3); Monocytes % 6.5 %; Neutrophils # 5.2 K/mcL (1.6-8.9); Platelet Count 271 K/mcL (140-400); Red Blood Count 2.86 M/mcL (4.19-5.50); Red Cell Distribution Width 19.6 % (11.5-14.5); Segmented Neutrophils % 78.3 %; White Blood Count 6.6 K/mcL (4.3-11.1)
[2020-12-27 13:12] LABS: Hemoglobin 5.7 g/dL (12.9-16.9)
[2020-12-27 13:37] LABS: Anisocytosis 1+ (Not Present); Hypochromasia Present (Not Present); Microcytosis Present (Not Present); Platelet Estimate Normal (Normal); Poikilocytosis 1+ (Not Present)
[2020-12-27 15:14] LABS: Prothrombin Time 11.7 Seconds (9.4-12.1)
[2020-12-27 15:36] LABS: Alanine Aminotransferase 17 Units/L (7-52); Albumin 4.2 g/dL (3.5-5.7); Albumin/Globulin Ratio 1.8 (1.1-2.2); Alkaline Phosphatase 59 Units/L (34-104); Aspartate Amino Transferase 11 Units/L (13-39); BUN/Creatinine Ratio 19 (6-26); Bilirubin,Direct 0.1 mg/dL (0.0-0.2); Bilirubin,Indirect 0.3 mg/dL (0.0-1.0); Bilirubin,Total 0.4 mg/dL (0.3-1.0); Blood Urea Nitrogen 21 mg/dL (8-23); Calcium 9.1 mg/dL (8.6-10.3); Carbon Dioxide 19 mEq/L (23-29); Chloride 98 mEq/L (98-107); Globulin 2.4 g/dL (2.4-3.5); Glucose 551 mg/dL (70-105); Iron < 10 mcg/dL (65-175); Lactate Dehydrogenase 122 Units/L (140-271); Magnesium 1.8 mg/dL (1.6-2.6); Osmolality,Calculated 296 (280-300); Phosphorous 3.8 mg/dL (2.7-4.5); Potassium 4.3 mEq/L (3.5-5.1); Sodium 129 mEq/L (136-145); Total Protein 6.6 g/dL (6.4-8.9); Transferrin 411 mg/dL (203-362); eGFR For African Americans > 60 (> 60); eGFR For Non-African Americans > 60 (> 60)
[2020-12-27 15:47] LABS: Estimated Average Glucose 275 mg/dl; Hemoglobin A1C 11.2 %
[2020-12-27 15:48] LABS: Ferritin 9 ng/mL (20-250)
[2020-12-27] MEDS ORDERED: Iron Sucrose Complex 400 MG in 0.9 % Sodium Chloride 250 ML IVPB ONE (16:14)
[2020-12-27] MEDS ORDERED: 0.9 % Sodium Chloride 250 ML ONE ×2 (16:38→22:18)
[2020-12-27 16:45] LABS: Activated Partial Thrombo Time 34.9 Seconds (26.0-36.0)
[2020-12-27] MEDS ORDERED: Acetaminophen 325 MG TABLET PO PRN (16:45)
[2020-12-27] MEDS ORDERED: Ondansetron 4 MG/2 ML VIAL IVP PRN (16:45)
[2020-12-27] MEDS ORDERED: Dextrose Gel 15 GM/37.5 ML TUBE PO PRN ×2 (16:47)
[2020-12-27] MEDS ORDERED: D5% in Water 1,000 ML IVC PRN (16:47)
[2020-12-27] MEDS ORDERED: *HR* Dextrose 50 % in Water (Vial) 50 ML VIAL IVP PRN (16:47)
[2020-12-27] MEDS: Insulin LISPRO 300 UNITS/3 ML VIAL SUBQ SCH ×2 (18:24→23:22)
[2020-12-28 05:27] LABS: Hematocrit 25.5 % (37.5-50.1); Mean Corpuscular HGB Conc 30.6 g/dL (31.6-35.5); Mean Corpuscular Hemoglobin 23.3 pg (28.0-33.3); Mean Corpuscular Volume 76.1 fL (83.0-100.0); Platelet Count 245 K/mcL (140-400); Red Blood Count 3.35 M/mcL (4.19-5.50); Red Cell Distribution Width 22.5 % (11.5-14.5); White Blood Count 6.2 K/mcL (4.3-11.1)
[2020-12-28 05:28] LABS: Hemoglobin 7.8 g/dL (12.9-16.9)
[2020-12-28 05:35] LABS: INR 1.1; Prothrombin Time 12.2 Seconds (9.4-12.1)
[2020-12-28 05:44] LABS: BUN/Creatinine Ratio 15 (6-26); Blood Urea Nitrogen 17 mg/dL (8-23); Calcium 8.9 mg/dL (8.6-10.3); Carbon Dioxide 25 mEq/L (23-29); Chloride 105 mEq/L (98-107); Glucose 281 mg/dL (70-105); Magnesium 1.9 mg/dL (1.6-2.6); Osmolality,Calculated 296 (280-300); Potassium 3.9 mEq/L (3.5-5.1); Sodium 137 mEq/L (136-145); eGFR For African Americans > 60 (> 60); eGFR For Non-African Americans > 60 (> 60)
[2020-12-28] MEDS: Insulin LISPRO 300 UNITS/3 ML VIAL SUBQ SCH ×3 (05:45→18:11)
[2020-12-28] MEDS ORDERED: *HR* Propofol 200 MG/20 ML VIAL IVP ONE (13:04)
[2020-12-28] MEDS: 0.9 % Sodium Chloride 1,000 ML IVC SCH (13:12)
[2020-12-29] MEDS: Insulin LISPRO 300 UNITS/3 ML VIAL SUBQ SCH ×4 (00:40→18:54)
[2020-12-29] MEDS: 0.9 % Sodium Chloride 1,000 ML IVC SCH (14:14)
[2020-12-30] MEDS: Insulin LISPRO 300 UNITS/3 ML VIAL SUBQ SCH ×2 (01:04→06:34)
[2020-12-30 06:38] LABS: Basophils # 0.1 K/mcL (0.0-0.2); Basophils % 1.1 %; Eosinophils # 0.3 K/mcL (0.0-0.6); Eosinophils % 4.4 %; Hematocrit 26.1 % (37.5-50.1); Hemoglobin 7.7 g/dL (12.9-16.9); Immature Granulocytes % 0.5 % (0-4); Lymphocytes # 0.9 K/mcL (0.6-4.6); Lymphocytes % 15.9 %; Mean Corpuscular HGB Conc 29.5 g/dL (31.6-35.5); Mean Corpuscular Hemoglobin 22.4 pg (28.0-33.3); Mean Corpuscular Volume 76.1 fL (83.0-100.0); Mean Platelet Volume 10.4 fL (9.4-12.4); Monocytes # 0.6 K/mcL (0.0-1.3); Monocytes % 10.1 %; Neutrophils # 3.9 K/mcL (1.6-8.9); Platelet Count 261 K/mcL (140-400); Red Blood Count 3.43 M/mcL (4.19-5.50); Red Cell Distribution Width 23.1 % (11.5-14.5); White Blood Count 5.7 K/mcL (4.3-11.1)
[2020-12-30 06:57] LABS: Anisocytosis 2+ (Not Present); Hypochromasia Present (Not Present); Microcytosis Present (Not Present)
[2020-12-30 06:58] LABS: Platelet Estimate Normal (Normal); Poikilocytosis 1+ (Not Present); Polychromasia 1+ (Not Present)
[2020-12-30 07:04] LABS: BUN/Creatinine Ratio 8 (6-26); Blood Urea Nitrogen 9 mg/dL (8-23); Calcium 8.7 mg/dL (8.6-10.3); Carbon Dioxide 23 mEq/L (23-29); Chloride 105 mEq/L (98-107); Glucose 182 mg/dL (70-105); Osmolality,Calculated 285 (280-300); Potassium 3.4 mEq/L (3.5-5.1); Sodium 136 mEq/L (136-145); eGFR For African Americans > 60 (> 60); eGFR For Non-African Americans > 60 (> 60)
[2020-12-30] MEDS ORDERED: Lidocaine -MPF 2% 2 ML VIAL ONE ×2 (09:00→09:56)
[2020-12-30 10:08] VITALS: BP 101/57
[2020-12-30] MEDS ORDERED: Insulin LISPRO 300 UNITS/3 ML VIAL SUBQ SCH ×2 (11:30→21:00)
== END 2020-12-30 14:08 | disposition home or self-care (01) ==
LOC: 3ANU 12:16 → EMEROOARM 12:16 → SUATTDRO 14:50 → 3ANU 15:46
PROVIDERS: ADMIT Internal Medicine; ATTEND Internal Medicine